=== PATIENT | female | born 1970 | race Caucasian/White ===

== ENCOUNTER 2017-08-10 08:08 | Emergency (ER) | payer MEDICAID, OTHER ==
[2017-08-10 08:27] VITALS: RESP 16; O2SAT 98
--- NOTE | 2017-08-10 08:32 | EDPHY ---
H & P Stated Complaint: Syncopal episode this am--Hit L eye area on sink Time Seen by Provider: 08/10/17 08:12 HPI/ROS: Chief complaint: Syncope with head injury History of present illness: This is a 46-year-old female who presents to the emergency department after sustaining a syncopal episode this morning and injuring her head. She passed out while urinating on the toilet, she believe she struck her head against the sink and then landed on the ground. She was found by her boyfriend who noted she was unconscious. No seizure activity was noted. Upon waking up she was fully alert. She had a large hematoma around her left eye. She has a headache. No complaint of neck pain or pain in other parts of the body. She has passed out previously and it is thought to be vasovagal in nature. Review of systems: A 10 point review of systems was obtained and other than described above was negative - Personal History LMP (Females 10-55): Unknown Current Tetanus/Diphtheria Vaccine: Unsure Current Tetanus Diphtheria and Acellular Pertussis (TDAP): Unsure - Medical/Surgical History Hx Asthma: No Hx Chronic Respiratory Disease: No Hx Diabetes: No Hx Cardiac Disease: No Hx Renal Disease: No Hx Cirrhosis: No Hx Alcoholism: No Hx HIV/AIDS: No Hx Splenectomy or Spleen Trauma: No Other PMH: denies - Social History Smoking Status: Never smoked - Physical Exam Exam: General Appearance: Alert, no distress. Eyes: Pupils equal and round no pallor or injection. EOM intact. ENT, Mouth: Mucous membranes moist. Respiratory: There are no retractions, lungs are clear to auscultation. Cardiovascular: Regular rate and rhythm. Gastrointestinal: Abdomen is soft and non tender, no masses, bowel sounds normal. Neurological: Alert and oriented x4. Cranial nerves 2-12 grossly intact. Strength and sensation intact and symmetrical. Skin: Warm and dry, no rashes. Musculoskeletal: There is pain to the forehead without crepitus or bony deformity. Discomfort around the left orbit where she has a contusion. There is pain Neck is supple non tender. Spine is nontender to palpation along its entire length, no crepitus, bony deformity step-off. Extremities are symmetrical, full range of motion. Psychiatric: Patient is oriented X 3, there is no agitation. Constitutional: Initial Vital Signs Temperature (C) 37.0 C 08/10/17 08:18 Heart Rate 76 08/10/17 08:18 Respiratory Rate 16 08/10/17 08:18 Blood Pressure 115/80 08/10/17 08:18 O2 Sat (%) 98 08/10/17 08:18 O2 Delivery Mode Room Air Allergies/Adverse Reactions: No Known Allergies Allergy (Unverified 08/10/17 08:18) Home Medications: Medication Instructions Recorded NK [No Known Home Meds] 12/03/16 NK [No Known Home Meds] 08/10/17 Medical Decision Making - Diagnostics Imaging: Discussed imaging studies w/ call center support consultant Radiologist ED Course/Re-evaluation: Patient seen in conjunction with my secondary supervising physician Dr. Tiburcio Schumacher. Patient presents to the emergency department for a syncopal episode with head injury. She does not want the workup for syncopal episodes she has had multiple vasovagal episodes in the past. Imaging studies are obtained of the head and orbits and unremarkable. Essentially she has a contusion around her left eye. She will be discharged home. Home care is discussed. Return precautions are given. Patient voiced understanding and agreement with plan. Differential Diagnosis: Included but not limited to soft tissue injury, bony fracture, intracranial injury - Data Points Medications Given: Discontinued Medications Hydrocodone Bitart/Acetaminophen ([place] 5/325mg Prepack#6) 1 btl TAKEHOME EDNOW ONE Stop: 08/10/17 09:35 Last Admin: 08/10/17 09:43 Dose: 1 btl Ondansetron HCl (Zofran Odt 4 Mg Prepack#2) 1 btl TAKEHOME EDNOW ONE Stop: 08/10/17 09:35 Last Admin: 08/10/17 09:43 Dose: 1 btl Departure - Departure Disposition: Home, Routine, Self-Care Clinical Impression: Head injury Qualifiers: Encounter type: initial encounter Qualified Code(s): S09.90XA - Unspecified injury of head, initial encounter Condition: Good Instructions: Hydrocodone/Acetaminophen (By mouth), Ondansetron (By mouth), Head Injury (ED) Additional Instructions: Follow up with a primary care doctor for recheck. In regards to pain control see the following: Use ibuprofen [600] mg [3] times a day for the next 2-3 days for pain In addition You have been prescribed [[place]] for pain. [[place]ning] contains Tylenol, do not take extra Tylenol/acetaminophen/Apap with it. It is sedating. If symptoms worsen or new symptoms develop return to the emergency department. Referrals: [facility],. [Clinic] - As per Instructions
[2017-08-10 08:53] VITALS: PULSE 76
[2017-08-10] MEDS ORDERED: HYDROCOD/APAP 5/325 PREPACK#6 BTL TAKEHOME ONE (09:34)
[2017-08-10] MEDS ORDERED: ONDANSETRON 4MG PREPACK#2 BTL TAKEHOME ONE (09:34)
[2017-08-10 09:52] VITALS: BP 112/70; TEMP 97.9
== END 2017-08-10 09:53 | disposition home or self-care (01) ==
DX: S09.90XA Unspecified injury of head, initial encounter (principal); W22.8XXA Striking against or struck by other objects, initial encounter; Y92.89 Other specified places as the place of occurrence of the external cause